=== PATIENT | female | born 1945 | race Caucasian/White ===

== ENCOUNTER 2016-12-20 09:15 | Inpatient (IN) | payer MEDICARE ==
[~2016-12-20] VITALS: Ht 157.5 cm; Wt 88.2 kg
--- NOTE | ~2016-12-20 | OP ---
PATIENT NAME: MARKO CURTIS MEDICAL RECORD: [id number] :43 [facility]ATION[facility] ADMISSION DATE:01/24/17 SURGEON: JOSE ANGEL YOUNG MD DATE OF OPERATION: 01/24/2017 PREOPERATIVE DIAGNOSES: Left cerebrovascular accident, left coronary artery stenosis. POSTOPERATIVE DIAGNOSES: Left cerebrovascular accident, left coronary artery stenosis, occluded left external carotid artery, multifaceted complex carotid artery plaque. SURGERIES: Left carotid artery endarterectomy with bovine patch angioplasty with real time neuromonitoring, modifier 22. SURGEON: Jose Angel Young MD. MOLD FINISHER: Antonio Fu MD. ANESTHESIA: General. FLUIDS: Per anesthesia record. ESTIMATED BLOOD LOSS: 200. SPECIMEN: Left carotid plaque. DISPOSITION: Awake to PACU to the ICU, neurologically intact, moving all extremities and talking. INDICATIONS FOR THE PROCEDURE: Mrs. Curtis is a 71-year-old female, cared for by Dr. Escamilla with a history of a left CVA. Workup revealed a high-grade left carotid stenosis. At that time, she had some residual defects and she was seen again in the interval where she had plateau of her symptoms and was doing well. We discussed the risks, alternatives and benefits of a left carotid endarterectomy given that she was symptomatic and she had a stenosis greater than 60%. This was confirmed both with an ultrasound, as well as CTA. We discussed the risks, alternatives and benefits of carotid endarterectomy, which included an approximately 3% to 4% stroke rate with an expectation of being in the hospital overnight in the ICU for neuromonitoring. PROCEDURE IN DETAIL: After positive identification, informed consent was obtained, the patient was taken to the operating room and laid supine on the operating table. Monitoring lines included EKG pad and a blood pressure cuff and an A-line placed by anesthesia in the preoperative holding area. General anesthesia was induced via endotracheal tube intubation. Antibiotics were given within 1 hour of incision and SCDs were placed for DVT prophylaxis. The patient was placed in the reverse Trendelenburg position and the neck was outstretched and extended to the left. The left neck was prepped and draped in standard fashion. Neuromonitoring was placed by the tech. A surgical timeout was performed and all members agreed to proceed. We began the procedure by delineating the course of the sternocleidomastoid. A sternal notch and clavicular head ____ was marked. We made an approximately 6-cm incision on the anterior border of the sternocleidomastoid. Dissection was OPERATIVE REPORT [id number] JOSEMARKO ESPITIA Juliana afforded down through the soft tissue with electrocautery. Platysma was split. It was immediately noted that her skin and soft tissues were quite tense and hard. We also noted that there was a lot of inflammatory reaction within the soft tissues in this area. It appeared that she either had a neck surgery in the past and/or radiation to this neck. Less likely was an infection or inflammatory process in the neck nonetheless. This was a quite a difficult case. We next spent approximately an hour and a half dissecting out her left carotid artery. The planes were all fused together and we carefully had to dissect out the muscle layers. The sternocleidomastoid was carefully dissected off of the platysmus. Again, these adhesions were extremely hard, fibrous and difficult to navigate; however, we carefully marched through them utilizing combination of sharp dissection with Metzenbaums and electrocautery. We were eventually able to identify the left internal jugular vein. The left internal jugular vein was carefully dissected and encircled. During this, we identified the facial vein which appeared very low and this was taken between ties. There was a little bit of bleeding from this and was oversewn with a 3-0 Vicryl. After this, we then noted that there was this plate of adhesions behind the left jugular vein. We carefully used the Doppler to locate the carotid artery and then we had to carefully dissect through this plane to eventually encircle the carotid artery. I wonder if whether or not there was some inflammatory reaction within her carotid from her plaques or ____, but it just seemed that this entire neck was sucked in and it created a very difficult plane, which took at least twice the normal time that would take to perform a carotid endarterectomy. Nonetheless, we carefully got proximal control of the common carotid and then carefully and circumferentially dissected it after giving 5000 units of heparin given that we are handling the arterial system. After doing this, we carefully marched up towards the carotid bifurcation. Her internal carotid artery was very, very diseased. There was a plaque which was immediately visible through the wall of the vessel and this extended up to a soft spot, which was about 2 cm above the bifurcation. Her plaque itself was about a 4 cm long plaque. The external carotid artery was also very calcified and the bifurcation was basically a very large calcific complex mass. After this, we then carefully put tapes around carotid artery. Getting into her bifurcation was very difficult and this again took a long time for us to get control of both the arteries, but eventually, we were able to get control of external, the internal thyroid branch and the common carotid artery. Heparin was then given again, 5000 units. After this was given for 3 minutes and along with neuromonitoring, we then clamped the internal carotid artery, the external was controlled with tapes and the common carotid artery was controlled with a Satinsky. We next utilized an 11-blade to open up the carotid artery at the area proximal to the plaque. We then used Odonnell to extend this towards the internal carotid artery. It immediately came obvious that there was a very complex plaque with multiple spotty areas of calcium and coral reef appearance of a small projectile calcium throughout. There almost appeared like a dissection plane of flat, plaque-like webs within the plaque with an ulceration posteriorly proximal. We carefully opened this up. Some of the debris within this came out immediately with flushing. This was most likely an asove-sg-pohfqib plaque situation. Nonetheless, we then utilized a [place] elevator to elevate the plaque starting at the edge and then coming circumferentially. We were able to dissect out the posterior ulcer proximal in the carotid artery, but as we came to the bifurcation, there was really no plane to develop with a [place]. Indeed, as we tried to hunter the external and take the plaque, we noticed the external carotid artery was actually occluded. We continued to circumferentially take out the plaque towards the common carotid artery and we were able to get to a soft plane towards the internal carotid. I have to say that this was a very, very complex OPERATIVE REPORT [id number] MARKO CURTIS plaque with multiple small digits of calcification and rough surfaces, which indeed could explain her stroke symptoms. As we took this, we noted that we could not fully get the calcified lesions on the anterior portion of her artery. Along with noting that her external was occluded, we then chose to trim off approximately 75% of the vessel and then recreate her common carotid, internal carotid complex with a bovine pericardial patch. After we took out the majority of the plaque, we then placed a shunt. This was a 3.5 x 30 cm shunt, which was placed. Good Doppler flow was exhibited through the shunt and no neuromonitoring changes occurred during clamping or unclamping. We next prepared our patch. The patch was then tailored to the defect. It was then sewn with a running 6-0 suture in running fashion. We carefully deliberately de-aired and flushed out the graft thoroughly before releasing our clamps. Right before finishing up our sewing, we did remove the shunt after clamping the carotid, internal and common. Again, no monitoring changes were found. We then finished oversewing thoroughly and de-aired and flushed our graft and then finally tied out knots. Utilizing the Doppler, we had good internal signal. The common carotid was opened and now, again, there were no changes to neuromonitoring and all clamps were off. We then observed our repair. One fixed stitch was used in an area that was used for de-airing. There was a little bit ooziness; however, given the very large extent of plaque and calcific changes within her artery, we chose not to reverse her. This was a protective mechanism and I thought that we could give her a little bit of time to reverse her on heparin as well as allow her to lay down some endothelium in her vessel. Also, we chose to then place a 10-Lithuanian Ricci drain. A layer of Fibrillar was laid over the patch angioplasty after waiting about 20 minutes to ensure that it will be hemostatic. The drain was brought out through the superior portion of the incision and then laid over this area. The wound, after assuring we had hemostasis, was then covered with an Evicel and then closed in 2 layers, first with a layer of 3-0 Vicryls for the platysmus and then a 4-0 Monocryl, skin glue and a dressing. At the end of the procedure, Mrs. Curtis was awakened from anesthesia without difficulty. She was on her feet. She moves her hands and she was able to voice her name. All sponge, instrument and needle counts were reported to be correct. TRANSINT:[id number] Voice Confirmation ID: [id number] DOCUMENT ID: [id number] JOSE ANGEL YOUNG MD CC: [id number] DICTATION DATE: 01/24/17 144 RECRUITMENT AND OUTREACH ASSISTANT: 01/25/17 0024 [facility] IN [facility] [address] [place] [address]
--- NOTE | ~2016-12-20 | OP ---
PATIENT NAME: MARKO GARCIA MEDICAL RECORD: [id number] :43 LOCATION:[facility] ADMISSION DATE:01/24/17 SURGEON: JADON MITCHELL MD DATE OF OPERATION: 01/24/2017 Assistance Note The patient had a stroke. She has left internal carotid artery stenosis. My involvement in the operation included assistance with exposure of the left neck. There was a lot of scar tissue present and then made this operation more difficult. My involvement in the operation included assistance with dissecting out the internal carotid artery, external carotid and its vessels. Assistance with suctioning and exposure. Assistance with some of the endarterectomy. Assistance with fashioning the patch. Assistance with sewing half of the bovine pericardial patch to the arteriotomy defect. I then scrubbed out as Dr. Young was closing the left neck. TRANSINT:[id number] Voice Confirmation ID: [id number] DOCUMENT ID: [id number] JADON MITCHELL MD CC: JADON PINTO and MIKHAIL YOUNG MD [id number] DICTATION DATE: 01/24/17 1519 LAND SURVEYING MANAGER: 01/25/17 0002 ADM IN [facility] [address] [place] [address]
[2017-01-24] VITALS (19 sets, daily range): BP systolic 111–160; BP diastolic 48–66; Ht 157.5 cm; Wt 88.2 kg
[2017-01-24 07:22] LABS: ANION GAP 12.5 mmol/L (8-16); CALCIUM 9.2 mg/dL (8.5-10.1); CARBON DIOXIDE 27.6 mmol/L (21.0-32.0); CREATININE - SERUM 1.2 mg/dL (0.6-1.3); POTASSIUM - SERUM 4.1 mmol/L (3.5-5.1)
[2017-01-24 07:26] LABS: INR 0.88 (0.85-1.17); PROTIME 11.7 SECONDS (11.6-15.0)
[2017-01-24 07:30] LABS: BASOPHILS 0.9 % (0-2); EOSINOPHILS 8.1 % (0-7); HEMOGLOBIN 10.5 g/dL (12-16); IMMATURE GRANULOCYTES 0.3 % (0-5); LYMPHOCYTES 18.9 % (15-50); MCH 28.3 pg (26.0-34.0); MCHC 31.8 g/dL (31.0-37.0); MCV 88.9 fL (80.0-100.0); MEAN PLATELET VOLUME 10.5 fL (7.4-10.4); MONOCYTES 9.9 % (2-11); NEUTROPHILS 61.9 % (40-80); PLATELET COUNT 222 10x3/uL (130-400); RBC 3.71 10x6/uL (4.00-5.40); RDW 14.9 % (11.5-14.5); WBC 7.4 10x3/uL (4.8-10.8)
[2017-01-24 07:35] LABS: APTT 23.9 SECONDS (22.8-39.4)
[2017-01-24] MEDS ORDERED: FISH OIL 1,0001 CA1 PO (07:43)
[2017-01-24] MEDS ORDERED: VITAMIN C1000 MG PO (07:43)
[2017-01-24] MEDS ORDERED: VITAMIN E400 UNI2 PO (07:44)
[2017-01-24] MEDS ORDERED: AGGRENOX 200/251 CAP PO (07:45)
[2017-01-24] MEDS ORDERED: GLUCOSAMINE & C1 CAP PO (07:45)
[2017-01-24] MEDS ORDERED: CELEXA40 MG PO (07:46)
[2017-01-24] MEDS ORDERED: CALCIUM 500 + D1 TAB PO (07:46)
[2017-01-24] MEDS ORDERED: ZOCOR20 MG PO (07:47)
[2017-01-24] MEDS ORDERED: [UNRECOGNIZED DRUG - OTHER] (07:47)
[2017-01-24] MEDS ORDERED: OMEPRAZOLE20 M1 PO (07:48)
[2017-01-24] MEDS ORDERED: NORVASC5 MG PO (07:49)
[2017-01-24] MEDS ORDERED: GABAPENTIN100 MG PO (07:49)
[2017-01-24] MEDS ORDERED: SYNTHROID75 MCG PO (07:50)
[2017-01-24] MEDS ORDERED: MOBIC7.5 MG PO (07:50)
[2017-01-24] MEDS ORDERED: SINGULAIR10 MG PO (07:51)
--- NOTE | 2017-01-24 08:08 | NUR ---
0800 PATIENTS VALIUM WAS SCANNED BUT NOT GIVEN DUE TO PERMITS NOT SIGNED, RETURNED VALIUM TO [employer]
--- NOTE | 2017-01-24 12:31 | NUR ---
CAROTID CLAMPED AND SHUNTED AT 1210, [place].
--- NOTE | 2017-01-24 13:03 | NUR ---
0940 WHEN INTERVIEWING PATIENT IN HOLDING AREA NOTED A BRUISE ON HER LEFT SIDE OF HER FOREHEAD, ALSO NOTED RED ROUND SPOT ON LEFT JAW/NECK AREA, DIVINE.
--- NOTE | 2017-01-24 15:30 | NUR ---
REC'D PT FROM OR, PT DROWSY, EASILY AWAKENS, ANSWERS QUESTIONS APPROPRIATELY. SHIFT ASSESSMENT COMPLETED, SEE FLOW SHEET. ROOM FREE OF CLUTTER, CALL LIGHT IN REACH. WILL CONTINUE TO MONITOR PT.
--- NOTE | 2017-01-24 16:02 | NUR ---
PT FIANCE AT THE BEDSIDE, ALL QUESTIONS ANSWERED, VSS, WILL CONTINUE TO MONITOR PT.
--- NOTE | 2017-01-24 18:05 | NUR ---
PT FIANCE AT THE BEDSIDE,ALL QUESTIONS ANSWERED. PT RESTING WITH EYES CLOSED, NO SIGNS OF DISTRESS, VSS. WILL CONTINUE TO MONITOR PT.
--- NOTE | 2017-01-24 19:00 | NUR ---
REPORT RECEIVED AND ASSESMENT COMPLETED. SEE FLOWSHEET FOR FULL DETAILS.
--- NOTE | 2017-01-24 21:00 | NUR ---
PT AT [facility]. UPDATE PROVIDED. VSS. WILL MONITOR
--- NOTE | 2017-01-24 21:00 | NUR ---
B/P ELEVATED. APRESOLINE GIVEN PER ORDERS.
--- NOTE | 2017-01-24 23:00 | NUR ---
REASSESSMENT COMPLETED. SEE FLOWSHEET FOR FULL DETAILS. NO CHANGES IN NEURO STATUS. PT RESTING IN ROOM VSS. BED IN LOW POSITION SIDERAILS UP X 3. WILL MONITOR.
[2017-01-25] VITALS (10 sets, daily range): BP systolic 108–159; BP diastolic 48–79
--- NOTE | 2017-01-25 00:15 | NUR ---
REPORT RECEIVED AND CARE ASSUMED. VSS MONITORED PER STANDARD ICU PROTOCOL ALL ALARMS SET AND VERIFIED.
--- NOTE | 2017-01-25 01:00 | NUR ---
PT SLEEPING RESP REG AND NONLABORED DRESSING TO LEFT NECK CDI NO BLEEDING NOTED. PT DENIES PAIN, NEURO CHECKS WNL
--- NOTE | 2017-01-25 06:00 | NUR ---
BOYFRIEND HERE TO VISIT. BROUGHT PT HER DENTURES PER PT REQUEST. NO COMPLAINTS DENIES NEEDS
--- NOTE | 2017-01-25 07:00 | NUR ---
PT REPORT REC'D, PT CARE ASSUMED. PT AAOX4 SITTING UP IN BED WATCHING TV. VSS, NO C/O PAIN. RIGHT RADIAL A-LINE, GOOD WAVE FORM, EXRTEMITY PINK AND WARM, WRIST PROTECTOR INTACT. RIGHT HAND PIV WITH FLUIDS INFUSING, SEE FLOW SHEET. LEFT AC PIV S/L'ED, DRESSING CDI. QUIROGA CATHETER FREE OF KINKS WITH CLEAR YELLOW URINE RETURN. SHIFT ASSESSMENT COMPLETED, SEE FLOW SHEET. ROOM FREE OF CLUTTER, CALL LIGHT IN REACH, WILL CONTINUE TO MONITOR PT.
--- NOTE | 2017-01-25 07:06 | NUR ---
SPOKE WITH DR. YOUNG VIA TELEPHONE DISCUSSED PT'S CONDITION, VS THROUGHOUT THE SHIFT, PRN MEDS GIVEN THROUGHOUT THE SHIFT, OUTPUT OF NAYELY DRAIN FOR THIS AND THE PRIOR SHIFT (TOTAL OF 50ML) AND HOME MEDS. NEW ORDERS RECEIVED, READ BACK AND VERIFIED.
--- NOTE | 2017-01-25 08:06 | NUR ---
DC'ED RIGHT RADIAL A-LINE DC'ED, PRESSURE APPLIED, 4X4'S AND TEGADERM APPLIED, WILL CONTINUE TO MONITOR PT.
--- NOTE | 2017-01-25 09:25 | NUR ---
CALLED DR. CANALES'S OFFICE, SPOKE WITH CASTRO MEJIA, PT TO HAVE F/U APPT 02/13/17 AT 4535
--- NOTE | 2017-01-25 09:36 | NUR ---
DC'ED LEFT NECK NAYELY DRAIN, 4X4 APPLIED, PRESSURE HELD, DRESSING APPLIED, WILL CONTINUE TO MONITOR PT.
--- NOTE | 2017-01-25 09:37 | NUR ---
DC'ED LEFT AC PIV, BAND AID APPLIED, DC'ED RIGHT HAND PIV, BAND AID APPLIED, WILL CONTINUE TO MONITO RPT.
--- NOTE | 2017-01-25 10:30 | NUR ---
1025- DC PAPER SIGNED, PT VERBALED UNDERSTANDING FOR FOLLOW UP CARE. 'S DC WORKSHEET GIVEN TO PATIENT (COPY ON CHART). 1030- PT WHEELED TO PERSONAL VEHICLE, PT FIANCE DRIVING.
== END 2017-01-25 10:30 | disposition home or self-care (01) | DRG 39 ==
LOC: D.SDCHOLD 01-24 05:56 → D.CVICU 01-24 05:56 → D.SDCHOLD 01-24 08:45 → D.CVICU 01-24 15:12
PROVIDERS: Anesthesiology; ADMIT Surgery
PROC: 03CN0ZZ Extirpation of Matter from Left External Carotid Artery, Open Approach (ICD-10-PCS; principal; 2017-01-24 08:45)
PROC: 03UN0JZ Supplement Left External Carotid Artery with Synthetic Substitute, Open Approach (ICD-10-PCS; principal; 2017-01-24 08:45)
DX: I65.22 Occlusion and stenosis of left carotid artery (principal); Z86.73 Personal history of transient ischemic attack (TIA), and cerebral infarction without residual deficits

== ENCOUNTER → 2018-03-01 08:49 | Outpatient (CLI) | payer MEDICARE ==
[2017-01-24 15:45] VITALS: BMI 36.6
[~2018-03-01 08:49] MED LIST: AGGRENOX 200/251 CAP PO; CALCIUM 500 + D1 TAB PO; CELEXA40 MG PO; FISH OIL 1,0001 CA1 PO; GABAPENTIN100 MG PO; GLUCOSAMINE & C1 CAP PO; MOBIC7.5 MG PO; NORVASC5 MG PO; OMEPRAZOLE20 M1 PO; SINGULAIR10 MG PO; SYNTHROID75 MCG PO; VITAMIN C1000 MG PO; VITAMIN E400 UNI2 PO; ZOCOR20 MG PO; [UNRECOGNIZED DRUG - OTHER]
== END | disposition home or self-care (01) ==
LOC: D.US 08:49
DX: I65.23 Occlusion and stenosis of bilateral carotid arteries (principal)